=== PATIENT | male | born 1950 | race Caucasian/White ===

== ENCOUNTER 2016-08-26 13:19 | Emergency (ER) | payer BC ==
[2016-08-26 13:43] VITALS: TEMP 97.8
[2016-08-26] MEDS ORDERED: SODIUM CHLORIDE 0.9% (FLUSH) 10 ML SYG IV PRN (13:52)
[2016-08-26] MEDS ORDERED: METOCLOPRAMIDE HCL INJ 10 MG/2 ML VIAL IV ONE (13:53)
[2016-08-26] MEDS ORDERED: diphenhydrAMINE HCL 50 MG/ML VIAL IV ONE (13:54)
[2016-08-26] MEDS ORDERED: SODIUM CHLORIDE 0.9% 1000ML 1,000 ML IVS ONE (13:55)
--- NOTE | 2016-08-26 14:22 | ED.PDOC ---
History of Present Illness - General Chief Complaint: Neuro Symptoms/Deficits Stated Complaint: dizziness,nausea,right sided tingling Time Seen by Provider: 08/26/16 13:50 Source: patient, family Exam Limitations: no limitations - History of Present Illness Initial Comments: 66 YO MALE PRESENTS TO ED WITH HEADACHE X 2 DAYS ASSOCIATED WITH PHOTOPHOBIA, NAUSEA, DIZZINESS, AND RIGHT SIDED PARESTESIAS. PT REPORTS HISTORY OF MIGRAINE HEADACHES BUT STATES THAT TODAYS SYMPTOMS ARE MORE SEVERE, PERSISTENT, AND INVOLVING PARESTESIAS AND NAUSEA. Timing/Duration: other - 2 DAYS GETTING WORSE SINCE 9AM THIS MORNING Severity: severe Improving Factors: other - DARKNESS Worsening Factors: other - LIGHT Associated Symptoms: nausea/vomiting, paresthesia - RIGHT UPPER EXTREMITY, RIGHT SIDE OF FACE, sleepy Allergies/Adverse Reactions: Allergies Bee Venom Allergy (Severe, Verified 12/30/13 16:54) Other swelling of throat, itching, welps Penicillins Allergy (Severe, Verified 12/30/13 16:54) Other Swelling of his throat, itching Home Medications: Ambulatory Orders Acetaminophen [Tylenol] 500 mg PO Q4H PRN 12/30/13 Aspirin [Aspirin EC] 81 mg PO BEDTIME 12/30/13 Benazepril HCl 20 mg PO DAILY 12/30/13 Ibuprofen [Advil] 400 mg PO Q6H PRN 12/30/13 Misc Natural Products [Saw [place]] 2 cap PO BID 12/30/13 Paroxetine HCl 10 mg PO DAILY 12/30/13 Nitroglycerin 0.4 mg Tab [Nitrostat] 1 ea SL Q5MIN PRN #1 bttl 12/31/13 Omeprazole Magnesium [Prilosec Otc] 20 mg PO DAILYBK #30 tab 12/31/13 Naproxen [Naprosyn] 500 mg PO BID #30 tab 11/01/14 Ondansetron [Zofran Odt] 4 mg PO QID #20 tab 11/01/14 Tramadol HCl [Ultram] 50 mg PO QID #20 tab 11/01/14 Hgevxdcabuvey-Svnx-Vgtqzabhao [Fioricet] 1 - 2 ea PO Q6HR PRN #20 tab 08/26/16 Review of Systems - Review of Systems Constitutional: Denies: chills, fever EENTM: Denies: blurred vision, double vision Respiratory: Denies: cough, short of breath Cardiology: Denies: chest pain, palpitations Gastrointestinal/Abdominal: States: nausea. Denies: diarrhea, vomiting Genitourinary: Denies: dysuria, frequency Musculoskeletal: Denies: joint pain, joint swelling Skin: Denies: dryness, rash Neurological: States: see HPI, headache, paresthesia Endocrine: States: no symptoms reported Hematologic/Lymphatic: States: no symptoms reported Past Medical History (General) - Patient Medical History Hx Seizures: No Hx Stroke: Yes Hx Cardiac Disorders: Yes Hx Congestive Heart Failure: No Hx Pacemaker: No Hx Hypertension: Yes Hx Diabetes: No Hx Cancer: No Hx Hepatitis C: No Hx MRSA: No Surgical History: cholecystectomy, tonsillectomy - Vaccination History Hx Influenza Vaccination: Yes Hx Pneumococcal Vaccination: Yes - Social History Hx Tobacco Use: Yes Hx Alcohol Use: No Hx Substance Use: No Hx Physical Abuse: No Hx Emotional Abuse: No - Female History Patient : No Family Medical History - Family History Mother Living Status: Hx Family Stroke: Yes Hx Family Diabetes: Yes Hx Family Cancer: Yes Father Living Status: Hx Family Hypertension: Yes Hx Family Diabetes: Yes Physical Exam - Physical Exam General Appearance: Alert, Obvious distress, Obese ENT Exam: normal ENT inspection, hearing grossly normal Neck: supple, tender lateral Respiratory: lungs clear, normal breath sounds Cardiovascular/Chest: regular rate, rhythm, no murmur Gastrointestinal/Abdominal: non tender, soft Back Exam: normal inspection, no CVA tenderness 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 PT RATES PAIN AT 4/10. WILL ORDER FIORICET. 08/26/16 16:15 PT RESTING COMFORTABLY AND REPORTS COMPLETE RESOLLUTION OF HEADACHE AND PARESTESIAS AFTER FIORICET. WILL D/C HOME AND RECCOMEND FOLLOW UP WITH DR. HICKEY. - EKG/XRAY/CT EKG: Sinus - 91BPM, NL AXIS, INCOMPLETE RBBB, no ST T wave changes, Unchanged from 12/30/13 Stroke Information - Onset of Symptoms Symptoms of Stroke: Numbness Stroke Onset of Symptoms Date: 08/25/16 Stroke Onset of Symptoms Time: 07:00 - Contraindications Antithrombotic Contraindication: Treatment not indicated t-PA Contraindication: Drug Tx Not Indicated Departure - Departure Clinical Impression: Complicated migraine Time of Disposition: 16:16 Disposition: Discharge to Home or Self Care Condition: Good Departure Forms: ED Discharge - Pt. Copy, Patient Portal Self Enrollment Instructions: DI for Migraine Diet: resume usual diet Referrals: Leighton Sparks MD [Primary Care Provider] - 1-2 Weeks Prescriptions: Dvhrlxmluddsu-Bupp-Xeydctnpgm [Fioricet] 1 - 2 ea PO Q6HR PRN #20 tab PRN Reason: Headache/Migraine Pain Home Medications: Ambulatory Orders Acetaminophen [Tylenol] 500 mg PO Q4H PRN 12/30/13 Aspirin [Aspirin EC] 81 mg PO BEDTIME 12/30/13 Benazepril HCl 20 mg PO DAILY 12/30/13 Ibuprofen [Advil] 400 mg PO Q6H PRN 12/30/13 Misc Natural Products [Saw [place]] 2 cap PO BID 12/30/13 Paroxetine HCl 10 mg PO DAILY 12/30/13 Nitroglycerin 0.4 mg Tab [Nitrostat] 1 ea SL Q5MIN PRN #1 bttl 12/31/13 Omeprazole Magnesium [Prilosec Otc] 20 mg PO DAILYBK #30 tab 12/31/13 Naproxen [Naprosyn] 500 mg PO BID #30 tab 11/01/14 Ondansetron [Zofran Odt] 4 mg PO QID #20 tab 11/01/14 Tramadol HCl [Ultram] 50 mg PO QID #20 tab 11/01/14 Baertajumdzcx-Veoa-Hhfuonlsuv [Fioricet] 1 - 2 ea PO Q6HR PRN #20 tab 08/26/16
--- NOTE | 2016-08-26 14:23 | CT ---
EXAM DESCRIPTION: Head CLINICAL HISTORY: HEADACHE, PARESTESIAS COMPARISON: None TECHNIQUE: Noncontrast transaxial CT images of the head are obtained from base to vertex. CT scan was done according to ALARA (As Low as Reasonably Achievable). FINDINGS: The midline structures are not displaced. Sulci are age-appropriate. There are areas of decreased attenuation in the periventricular white matter and the white matter of the centrum semiovale. There is no evidence of mass, mass-effect, hydrocephalus, or acute intracranial hemorrhage. No abnormal extra axial fluid collection is seen. Bone windows show no evidence of depressed skull fracture. Incidentally noted the presence of the bony covering of the right carotid artery in the superior aspect of the right sphenoid sinus. Mild mucosal thickening of ethmoid air cells is noted. IMPRESSION: 1. Age-appropriate atrophy with evidence of old small vessel ischemic type changes seen. 2. No acute abnormality is seen on noncontrast CT of the head. 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
[2016-08-26] MEDS ORDERED: KETOROLAC TROMETHAMINE INJ 30 MG/ML VIAL IV ONE (14:28)
[2016-08-26] MEDS ORDERED: ACETAMINOPHEN-CAFF-BUTALBITAL 1 EA TAB PO PRN (15:17)
[2016-08-26 16:11] VITALS: O2SAT 95
[2016-08-26 16:38] VITALS: BP 108/56
== END 2016-08-26 16:38 | disposition home or self-care (01) ==
LOC: ER 13:19
DX: G43.109 Migraine with aura, not intractable, without status migrainosus (principal); I10 Essential (primary) hypertension; Z79.82 Long term (current) use of aspirin; Z79.899 Other long term (current) drug therapy; Z86.73 Personal history of transient ischemic attack (TIA), and cerebral infarction without residual deficits; Z88.0 Allergy status to penicillin; Z91.030 Bee allergy status; Z87.891 Personal history of nicotine dependence
CPT/HCPCS: 36415; 70450; 80053; 82550; 82553; 84484; 85025; 85610; 85730; 93005; J1200; J1885; J2765; J7030

== ENCOUNTER → 2017-04-04 | Outpatient (CLI) | payer BC ==
--- NOTE | 2017-04-04 15:10 | MRI ---
Study: MRI of the Left Knee. Indication: Anterior knee pain. Technique: Multiplanar, multi sequence MRI of the left knee was obtained without intravenous contrast. Comparison: None. FINDINGS: ACL, PCL, and lateral collateral ligament complex intact. Grade 1 MCL sprain with bowing and surrounding edema. Near complete radial transection posterior root attachment medial meniscus with degenerative signal throughout the posterior horn and body. Body extruded by 2 mm. Discoid configuration lateral meniscus with horizontally oriented degenerative signal posterior horn and body but without well-defined tear. Areas of grade 2 chondral thinning of the medial and lateral knee compartments without full-thickness chondral defect. A transversely oriented stress fracture of the medial tibial plateau noted paralleling the articular cortex but without cortical disruption. Associated moderate size knee effusion. Tendinosis quadriceps tendon insertion and patellar tendon origin without tear. Patella normally located. Extensive grade 2-3 chondral fibrillation throughout the junction lateral patellar facet and apex with less pronounced changes of the medial facet. Tiny Mathews cyst. IMPRESSION: Near-complete renal transection posterior root attachment medial meniscus. Discoid configuration lateral meniscus with degenerative signal. Transverse fracture medial tibial plateau without cortical/articular disruption. Grade 1 MCL sprain. Tricompartmental chondrosis most pronounced at the patella as above. Moderate size knee effusion. Electronically signed by: Angel Graves MD 04/04/2017 3:08 PM CDT
== END | disposition home or self-care (01) ==
LOC: MRI 09:58
PROVIDERS: ATTEND Family Medicine
DX: M25.562 Pain in left knee (principal); M84.38XA Stress fracture, other site, initial encounter for fracture; X58.XXXA Exposure to other specified factors, initial encounter

== ENCOUNTER → 2017-04-15 | Outpatient (CLI) | payer BC ==
--- NOTE | 2017-04-17 01:20 | RAD ---
Examination: XR KNEE 4 OR MORE VIEWS dated 04/15/2017 12:00 AM CDT History: KNEE PAIN Comparison: None Technique: Four views of the left knee FINDINGS AND IMPRESSION: No acute fracture or dislocation. The joint space is well-maintained. No significant joint effusion. Electronically signed by: Bharat Bacon MD 04/17/2017 1:18 AM CDT
== END | disposition home or self-care (01) ==
LOC: RAD 08:06
PROVIDERS: ATTEND Orthopaedic Surgery
DX: M25.562 Pain in left knee (principal)

== ENCOUNTER → 2017-05-06 | Outpatient (CLI) | payer BC ==
--- NOTE | 2017-05-08 10:23 | RAD ---
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 No joint effusion seen. No subcutaneous gas or radiopaque foreign body. No lytic or sclerotic lesions identified. No significant degenerative change. Impression: Stable and nonacute left knee series. Electronically signed by: Aldair Galicia MD 05/08/2017 10:21 AM PROFESSOR OF OCEANOGRAPHY
== END | disposition home or self-care (01) ==
LOC: RAD 07:57
PROVIDERS: ATTEND Orthopaedic Surgery
DX: S82.102D Unspecified fracture of upper end of left tibia, subsequent encounter for closed fracture with routine healing (principal)

== ENCOUNTER → 2017-07-05 | Outpatient (CLI) | payer BC | END | disposition home or self-care (01) | LOC: GMAH 10:21 | PROVIDERS: ATTEND Family Medicine | DX: E78.2 Mixed hyperlipidemia (principal); Z12.5 Encounter for screening for malignant neoplasm of prostate ==

== ENCOUNTER → 2017-08-18 | Outpatient (CLI) | payer BC | LOC: GMAH 17:00 | PROVIDERS: ATTEND Family Medicine | DX: N39.0 Urinary tract infection, site not specified (principal); R39.11 Hesitancy of micturition ==

== ENCOUNTER 2017-11-02 14:54 | Emergency (ER) | payer BC ==
--- NOTE | 2017-11-02 15:02 | ED.PDOC ---
History of Present Illness - General Chief Complaint: General Stated Complaint: cough Time Seen by Provider: 11/02/17 15:00 Source: patient Exam Limitations: no limitations - History of Present Illness Initial Comments: susan Ann 67 y/o male stated that he had slightly productive cough for the last 3 days then yesterday feels febrile also had exacerbation of his migraine headaches.He also mentioned that for the last 2 weeks had burning sensation on his right leg but no weakness,no history of injury,no swelling.Had the following medical problems:HTN,Migraine,CVA,[id number]. Timing/Duration: other - see hpi Severity: moderate Improving Factors: nothing Worsening Factors: nothing Associated Symptoms: other - see hpi Allergies/Adverse Reactions: Allergies Bee Venom Allergy (Severe, Verified 11/02/17 15:07) Other swelling of throat, itching, welps Penicillins Allergy (Severe, Verified 11/02/17 15:07) Other Swelling of his throat, itching Home Medications: Ambulatory Orders Acetaminophen [Tylenol] 500 mg PO Q4H PRN 12/30/13 Aspirin [Aspirin EC] 81 mg PO BEDTIME 12/30/13 Benazepril HCl 20 mg PO DAILY 12/30/13 Ibuprofen [Advil] 400 mg PO Q6H PRN 12/30/13 Misc Natural Products [Saw [place]] 2 cap PO BID 12/30/13 Paroxetine HCl 10 mg PO DAILY 12/30/13 Nitroglycerin 0.4 mg Tab [Nitrostat] 1 ea SL Q5MIN PRN #1 bttl 12/31/13 Omeprazole Magnesium [Prilosec Otc] 20 mg PO DAILYBK #30 tab 12/31/13 Naproxen [Naprosyn] 500 mg PO BID #30 tab 11/01/14 Ondansetron [Zofran Odt] 4 mg PO QID #20 tab 11/01/14 Tramadol HCl [Ultram] 50 mg PO QID #20 tab 11/01/14 Frndvazyryvcm-Qwqa-Imwtmmxuzi [Fioricet] 1 - 2 ea PO Q6HR PRN #20 tab 08/26/16 Review of Systems - Review of Systems Constitutional: States: no symptoms reported EENTM: States: no symptoms reported Respiratory: States: see HPI, cough Cardiology: States: no symptoms reported Gastrointestinal/Abdominal: States: no symptoms reported Genitourinary: States: no symptoms reported Musculoskeletal: States: see HPI Skin: States: no symptoms reported Neurological: States: see HPI, paresthesia Endocrine: States: no symptoms reported Hematologic/Lymphatic: States: no symptoms reported All other Systems: Reviewed and Negative, No Change from Baseline Past Medical History (General) - Patient Medical History Hx Seizures: No Hx Stroke: Yes Hx Cardiac Disorders: Yes Hx Congestive Heart Failure: No Hx Pacemaker: No Hx Hypertension: Yes Hx Diabetes: No Hx Cancer: No Hx Hepatitis C: No Hx MRSA: No Surgical History: cholecystectomy, tonsillectomy, other - 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 - Vaccination History Hx Influenza Vaccination: Yes Hx Pneumococcal Vaccination: Yes - Social History Hx Tobacco Use: Yes Hx Alcohol Use: No Hx Substance Use: No Hx Physical Abuse: No Hx Emotional Abuse: No - Female History Patient : No Family Medical History - Family History Mother Living Status: Hx Family Stroke: Yes Hx Family Diabetes: Yes Hx Family Cancer: Yes Father Living Status: Hx Family Hypertension: Yes Hx Family Diabetes: Yes Physical Exam - Physical Exam General Appearance: Alert, Comfortable, No apparent distress Eye Exam: bilateral normal Ears, Nose, Throat: hearing grossly normal, normal ENT inspection, normal pharynx Neck: non-tender, full range of motion, supple, normal inspection Respiratory: chest non-tender, lungs clear, normal breath sounds, no respiratory distress Cardiovascular/Chest: normal peripheral pulses, regular rate, rhythm, no gallop , no murmur Peripheral Pulses: radial,right: 2+, radial,left: 2+ Gastrointestinal/Abdominal: normal bowel sounds, non tender, soft, no organomegaly Back Exam: normal inspection, no CVA tenderness, no vertebral tenderness, other - rom full right knee no instability Extremity: no pedal edema, no calf tenderness 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 II-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 nml as tested, no motor/sensory deficits, alert, oriented x 3 Skin Exam: normal color Lymphatic: no adenopathy Progress - Progress Progress: 11/02/17 15:53 Vital Signs - 8 hr 11/02/17 15:00 Temperature 98.3 F Pulse Rate [ 95 H pulse ox] Respiratory 20 Rate Blood Pressure 164/90 [Left Arm] O2 Sat by Pulse 97 Oximetry - Results/Orders Results/Orders: 11/02/17 15:17 IV Care:Saline Lock per Protoc QSHIFT Laboratory Results - last 24 hr 11/02/17 11/02/17 11/02/17 15:17 15:17 15:17 WBC 7.1 RBC 4.47 L Hgb 13.6 L Hct 40.5 L MCV 90.7 MCH 30.4 MCHC 33.6 RDW 14.4 Plt Count 217 MPV 7.3 L Absolute Neuts (auto) 4.60 Absolute Lymphs (auto) 1.70 Absolute Monos (auto) 0.70 Absolute Eos (auto) 0.10 Absolute Basos (auto) 0.00 Neutrophils % 64.3 Lymphocytes % 23.5 Monocytes % 10.5 H Eosinophils % 1.0 Basophils % 0.7 ESR 6 PT 10.9 INR 0.940 PTT (SP) 29.8 D-Dimer, Quantitative < 230 Sodium 138 Potassium 4.4 Chloride 106 Carbon Dioxide 26 Anion Gap 10.4 L BUN 26 H Creatinine 1.21 BUN/Creatinine Ratio 21.5 H Random Glucose 95 Serum Osmolality 280.2 Lactic Acid Uric Acid 6.5 Calcium 9.0 Magnesium 1.9 Total Bilirubin 0.4 Direct Bilirubin 0.1 Indirect Bilirubin 0.3 AST 19 ALT 13 Alkaline Phosphatase 51 Creatine Kinase 107 CK-MB (CK-2) 2.5 CK-MB (CK-2) % Not Reportable Troponin I < 0.02 Serum Total Protein 7.0 Albumin 3.8 Urine Color Urine Appearance Urine pH Ur Specific Sophia Urine Protein Urine Glucose (UA) Urine Ketones Urine Blood Urine Nitrite Urine Bilirubin Urine Urobilinogen Ur Leukocyte Esterase Urine RBC Urine WBC Ur Epithelial Cells Amorphous Sediment Urine Bacteria 11/02/17 11/02/17 15:17 16:15 WBC RBC Hgb Hct MCV MCH MCHC RDW Plt Count MPV Absolute Neuts (auto) Absolute Lymphs (auto) Absolute Monos (auto) Absolute Eos (auto) Absolute Basos (auto) Neutrophils % Lymphocytes % Monocytes % Eosinophils % Basophils % ESR PT INR PTT (SP) D-Dimer, Quantitative Sodium Potassium Chloride Carbon Dioxide Anion Gap BUN Creatinine BUN/Creatinine Ratio Random Glucose Serum Osmolality Lactic Acid 0.8 Uric Acid Calcium Magnesium Total Bilirubin Direct Bilirubin Indirect Bilirubin AST ALT Alkaline Phosphatase Creatine Kinase CK-MB (CK-2) CK-MB (CK-2) % Troponin I Serum Total Protein Albumin Urine Color Yellow Urine Appearance Clear Urine pH 5.5 Ur Specific Sophia 1.025 Urine Protein Trace Urine Glucose (UA) Negative Urine Ketones Negative Urine Blood Trace-lysed H Urine Nitrite Negative Urine Bilirubin Negative Urine Urobilinogen 0.2 Ur Leukocyte Esterase Negative Urine RBC 1-3 Urine WBC 0-1 Ur Epithelial Cells 3-5 Amorphous Sediment 3+ Urine Bacteria Rare - EKG/XRAY/CT XRAY: knee - mild degenerative changes right knee Departure - Departure Clinical Impression: Cough, Paresthesia of right leg Time of Disposition: 17:00 Disposition: Discharge to Home or Self Care Departure Forms: ED Discharge - Pt. Copy, Patient Portal Self Enrollment Referrals: Leighton Sparks MD [Primary Care Provider] - 1-2 Weeks Home Medications: Ambulatory Orders Acetaminophen [Tylenol] 500 mg PO Q4H PRN 12/30/13 Aspirin [Aspirin EC] 81 mg PO BEDTIME 12/30/13 Benazepril HCl 20 mg PO DAILY 12/30/13 Ibuprofen [Advil] 400 mg PO Q6H PRN 12/30/13 Misc Natural Products [Saw [place]] 2 cap PO BID 12/30/13 Paroxetine HCl 10 mg PO DAILY 12/30/13 Nitroglycerin 0.4 mg Tab [Nitrostat] 1 ea SL Q5MIN PRN #1 bttl 12/31/13 Omeprazole Magnesium [Prilosec Otc] 20 mg PO DAILYBK #30 tab 12/31/13 Naproxen [Naprosyn] 500 mg PO BID #30 tab 11/01/14 Ondansetron [Zofran Odt] 4 mg PO QID #20 tab 11/01/14 Tramadol HCl [Ultram] 50 mg PO QID #20 tab 11/01/14 Hawzvbqtoqnew-Vspv-Truwkumrsz [Fioricet] 1 - 2 ea PO Q6HR PRN #20 tab 08/26/16 Additional Instructions: Follow up with primary MD 03 Nov 2017;Return to ER as needed
[2017-11-02 15:08] VITALS: TEMP 98.3
--- NOTE | 2017-11-02 15:46 | RAD ---
EXAM DESCRIPTION: Chest,2 Views CLINICAL HISTORY: cough COMPARISON: November 01, 2014 TECHNIQUE: PA/lateral FINDINGS: The lungs are well expanded and clear. No infiltrates or effusions or masses are noted. The heart is normal in size and shape with no evidence of vascular congestion. The meme and mediastinum demonstrate normal contours. The bony spine and chest wall is normal for age in appearance. IMPRESSION: Normal chest, two views Electronically signed by: Kyle Avina MD 11/02/2017 3:44 PM CDT
--- NOTE | 2017-11-02 15:48 | RAD ---
EXAM DESCRIPTION: Knee,Right 2 or More Views CLINICAL HISTORY: 67 years, Male, cough COMPARISON: May 06, 2017 examination of the left knee TECHNIQUE: Two views right knee FINDINGS: Two views demonstrate normal alignment. Slight fragmentation of the tibial tuberosity likely represents old inflammatory or traumatic disease. Blunting of the infrapatellar fat pad to confirm Quentin-Schlatter's disease is not apparent. No definite joint effusion is seen. No acute injury noted. IMPRESSION: 1. Minimal degenerative changes otherwise negative right knee. Electronically signed by: Kyle Avina MD 11/02/2017 3:46 PM CDT
--- NOTE | 2017-11-02 16:07 | RAD ---
EXAM DESCRIPTION: Tibia/Fibula,Right CLINICAL HISTORY: 67 years Male, pain COMPARISON: None. FINDINGS: AP lateral right tib-fib shows no fracture or bone lesion. No soft tissue abnormality detected. IMPRESSION: Negative Electronically signed by: Feroz Arce MD 11/02/2017 4:06 PM CDT
[2017-11-02 17:08] VITALS: BP 150/88; O2SAT 96
== END 2017-11-02 17:09 | disposition home or self-care (01) ==
LOC: ER 14:54
DX: R05 Cough (principal); R20.2 Paresthesia of skin; I10 Essential (primary) hypertension; Z86.73 Personal history of transient ischemic attack (TIA), and cerebral infarction without residual deficits; Z79.82 Long term (current) use of aspirin; Z87.891 Personal history of nicotine dependence

== ENCOUNTER → 2017-11-03 | Outpatient (CLI) | payer BC, MEDICARE ==
--- NOTE | 2017-11-03 16:50 | US ---
EXAM DESCRIPTION: Venous,Lower Extremity RT CLINICAL HISTORY: 67 years Male PN IN RIGHT LEG COMPARISON: None. TECHNIQUE: Duplex imaging performed to evaluate the right lower extremity venous structures. Compression imaging and augmentation imaging performed. The common femoral, superficial femoral, popliteal, greater saphenous and posterior tibial veins were examined. FINDINGS: No thrombus is identified in the right lower extremity venous structures. IMPRESSION: No DVT is identified in the right lower extremity. Electronically signed by: Soco Lewis MD 11/03/2017 4:49 PM CDT
== END ==
LOC: RAD 15:54
PROVIDERS: ATTEND Family Medicine
DX: M79.661 Pain in right lower leg (principal)

== ENCOUNTER 2017-11-20 10:56 | Emergency (ER) | payer BC, OTHER ==
--- NOTE | 2017-11-20 11:21 | ED.PDOC ---
History of Present Illness - General Chief Complaint: Lower Extremity Injury Time Seen by Provider: 11/20/17 11:12 Source: patient Exam Limitations: no limitations - History of Present Illness Occurred: yesterday Pain - Lower Extremity: severe: Right Knee Method of Injury: other - sudden sharp pain in knee while ascending a ladder Improving Factors: immobilization Worsening Factors: movement - and weight bearing Allergies/Adverse Reactions: Allergies Bee Venom Allergy (Severe, Verified 11/02/17 15:07) Other swelling of throat, itching, welps Penicillins Allergy (Severe, Verified 11/02/17 15:07) Other Swelling of his throat, itching Home Medications: Ambulatory Orders Acetaminophen [Tylenol] 500 mg PO Q4H PRN 12/30/13 Aspirin [Aspirin EC] 81 mg PO BEDTIME 12/30/13 Benazepril HCl 20 mg PO DAILY 12/30/13 Ibuprofen [Advil] 400 mg PO Q6H PRN 12/30/13 Misc Natural Products [Saw [place]] 2 cap PO BID 12/30/13 Paroxetine HCl 10 mg PO DAILY 12/30/13 Nitroglycerin 0.4 mg Tab [Nitrostat] 1 ea SL Q5MIN PRN #1 bttl 12/31/13 Omeprazole Magnesium [Prilosec Otc] 20 mg PO DAILYBK #30 tab 12/31/13 Naproxen [Naprosyn] 500 mg PO BID #30 tab 11/01/14 Ondansetron [Zofran Odt] 4 mg PO QID #20 tab 11/01/14 Tramadol HCl [Ultram] 50 mg PO QID #20 tab 11/01/14 Xnrurslufqrpf-Ryaf-Ygzdncyckm [Fioricet] 1 - 2 ea PO Q6HR PRN #20 tab 08/26/16 Tramadol HCl 50 mg PO Q4HWA PRN #20 tab 11/20/17 Review of Systems - Review of Systems Constitutional: States: no symptoms reported EENTM: States: no symptoms reported Gastrointestinal/Abdominal: States: no symptoms reported Musculoskeletal: States: joint pain Skin: States: no symptoms reported Neurological: States: no symptoms reported Past Medical History (General) - Patient Medical History Hx Seizures: No Hx Stroke: Yes Hx Cardiac Disorders: Yes Hx Congestive Heart Failure: No Hx Pacemaker: No Hx Hypertension: Yes Hx Diabetes: No Hx Cancer: No Hx Hepatitis C: No Hx MRSA: No - Vaccination History Hx Influenza Vaccination: Yes Hx Pneumococcal Vaccination: Yes - Social History Hx Tobacco Use: Yes Hx Alcohol Use: No Hx Substance Use: No Hx Physical Abuse: No Hx Emotional Abuse: No - Female History Patient : No Family Medical History - Family History Mother Living Status: Hx Family Stroke: Yes Hx Family Diabetes: Yes Hx Family Cancer: Yes Father Living Status: Hx Family Hypertension: Yes Hx Family Diabetes: Yes Physical Exam - Physical Exam General Appearance: Alert, Anxious Thigh/Hip: normal inspection, non-tender Leg: normal inspection, non-tender Knee: normal inspection, limited ROM, other - tender over lateral joint line and popliteal fossa, positive Momo's sign Ankle: normal inspection, non-tender Foot: normal inspection, non-tender Neuro/Tendon: normal sensation Mental Status: alert, oriented x 3 Skin: normal color, warm/dry Departure - Departure Clinical Impression: Meniscal injury Qualifiers: Encounter type: initial encounter Laterality: right Qualified Code(s): S83.8X1A - Sprain of other specified parts of right knee, initial encounter Disposition: Discharge to Home or Self Care Condition: Fair Departure Forms: ED Discharge - Pt. Copy, Patient Portal Self Enrollment Instructions: DI for Leg Pain Activity: walking as tolerated Referrals: Leighton Sparks MD [Primary Care Provider] - 1-2 Weeks Prescriptions: Tramadol HCl 50 mg PO Q4HWA PRN #20 tab PRN Reason: Moderate To Severe Pain Home Medications: Ambulatory Orders Acetaminophen [Tylenol] 500 mg PO Q4H PRN 12/30/13 Aspirin [Aspirin EC] 81 mg PO BEDTIME 12/30/13 Benazepril HCl 20 mg PO DAILY 12/30/13 Ibuprofen [Advil] 400 mg PO Q6H PRN 12/30/13 Misc Natural Products [Saw [place]] 2 cap PO BID 12/30/13 Paroxetine HCl 10 mg PO DAILY 12/30/13 Nitroglycerin 0.4 mg Tab [Nitrostat] 1 ea SL Q5MIN PRN #1 bttl 12/31/13 Omeprazole Magnesium [Prilosec Otc] 20 mg PO DAILYBK #30 tab 12/31/13 Naproxen [Naprosyn] 500 mg PO BID #30 tab 11/01/14 Ondansetron [Zofran Odt] 4 mg PO QID #20 tab 11/01/14 Tramadol HCl [Ultram] 50 mg PO QID #20 tab 11/01/14 Hvrwqrbdotkdy-Bvvd-Ifkwiwmylc [Fioricet] 1 - 2 ea PO Q6HR PRN #20 tab 08/26/16 Tramadol HCl 50 mg PO Q4HWA PRN #20 tab 11/20/17
[2017-11-20 11:33] VITALS: TEMP 98
--- NOTE | 2017-11-20 12:22 | RAD ---
EXAM DESCRIPTION: Knee,Right 2 or More Views CLINICAL HISTORY: pain in popliteal fossa COMPARISON: None FINDINGS: AP, lateral and sunrise views of the right knee were submitted. There is no acute fracture or dislocation. Bone mineralization is within normal limits. There is no suprapatellar joint fluid collection IMPRESSION: No acute abnormalities Electronically signed by: Jaycob Ruiz MD 11/20/2017 12:21 PM CDT
[2017-11-20] MEDS ORDERED: traMADol HCL 50 MG TAB PO ONE (12:44)
[2017-11-20 15:28] VITALS: BP 142/84; O2SAT 97
== END 2017-11-20 13:12 | disposition home or self-care (01) ==
LOC: ER 10:56
DX: S83.8X1A Sprain of other specified parts of right knee, initial encounter (principal); I10 Essential (primary) hypertension; Z86.73 Personal history of transient ischemic attack (TIA), and cerebral infarction without residual deficits; Z87.891 Personal history of nicotine dependence; Z79.82 Long term (current) use of aspirin; Z79.899 Other long term (current) drug therapy; X58.XXXA Exposure to other specified factors, initial encounter

== ENCOUNTER → 2018-02-27 | Outpatient (CLI) | payer BC | LOC: LAB.O 10:29 | PROVIDERS: ATTEND Orthopaedic Surgery | DX: Z01.818 Encounter for other preprocedural examination (principal) ==

== ENCOUNTER 2018-03-31 05:41 | Inpatient (IN) | payer BC, MEDICARE ==
--- NOTE | 2018-03-20 11:13 | HP ---
CHIEF COMPLAINT: Right knee pain. HISTORY OF PRESENT ILLNESS: Mr. Ann is a 67-year-old male with a history of pain in both knees. Mr. Ann has had injections, however, has failed to gain relief. Because of his pain and failure of relief, he has requested operative intervention. After discussing the risks, benefits and alternatives to that, the patient has given informed consent for total knee arthroplasty. PAST SURGICAL HISTORY: 1. Cholecystectomy. 2. Skin cancer removal. MEDICATIONS: 1. Benazepril. 2. Fluoxetine. 3. Tamsulosin. 4. Tramadol. ALLERGIES: NO KNOWN DRUG ALLERGIES. CODE STATUS: Full code. IMMUNIZATIONS: Up to date. FAMILY HISTORY: None pertinent to today's complaint. SOCIAL HISTORY: The patient does not smoke or use any illicit drugs. He does drink on occasion. REVIEW OF SYSTEMS: Negative except as indicated in the History of Present Illness. PHYSICAL EXAMINATION: VITAL SIGNS: Blood pressure 148/91. Pulse 86. Height 5'10". Weight 264 pounds. MENTAL STATUS: The patient is awake, alert, and is able to give a good history and participate in the physical. The patient is oriented to person, place and time. SKIN: Normal tone and turgor. HEENT: Normocephalic, atraumatic. Pupils equal, round and reactive. Mucosal membranes are moist. NECK: Normal range of motion. No thyromegaly, no lymphadenopathy. CHEST: Normal respiratory excursion. CARDIAC: Regular rate and rhythm. No murmurs, rubs or gallops. MUSCULOSKELETAL: The bilateral upper extremities show full active range of motion without pain. He has intact sensation. They are warm and well perfused. Strength is 5/5. There is no deformity. There is no crepitus. The left lower extremity shows no pain with range of motion of the hip. He does have some pain with range of motion in the knee. He has intact sensation. There is no varus/valgus or anterior/posterior laxity. He has no obvious malalignment. The right lower extremity shows no pain with range of motion of the hip, but he has severe pain with range of motion in the knee. He has crepitus throughout his range of motion. Sensation is intact and it is warm and well perfused. There is no varus/valgus or anterior/posterior laxity. He does have slight varus deformity. IMAGING: X-rays show severe arthritis with varus deformity. ASSESSMENT: 1. Knee arthritis. PLAN: The plan at this point is for total knee arthroplasty. We have discussed the risks, benefits, and alternatives to that and the patient has given informed consent. #[id number] [facility]
[2018-03-31] MEDS ORDERED: VANCOMYCIN HCL INJ 1,000 MG VIAL IVPB ONE ×4 (06:09→19:30)
[2018-03-31] MEDS ORDERED: SODIUM CHLORIDE 0.9% 250ML 250 ML ONE ×3 (06:09→19:30)
[2018-03-31] MEDS ORDERED: LACTATED RINGERS 1,000 ML ONE (06:09)
[2018-03-31] MEDS ORDERED: CLINDAMYCIN IV 900MG 50 ML IVPB ONE ×2 (06:09→06:58)
[2018-03-31] MEDS ORDERED: TRANEXAMIC ACID 1,000 MG/10 ML VIAL ONE ×2 (06:10)
[2018-03-31] MEDS ORDERED: SODIUM CHLORIDE 0.9% 100ML 100 ML IVPB ONE (06:10)
[2018-03-31] MEDS ORDERED: fentaNYL CITRATE INJ 50 MCG/ML AMP ONE (06:25)
[2018-03-31] MEDS ORDERED: ACETAMINOPHEN IV 1000MG 100 ML ONE (06:25)
[2018-03-31] MEDS ORDERED: MORPHINE SULF *EPIDURAL* 1 MG/ML VIAL ONE (06:25)
[2018-03-31] MEDS ORDERED: MIDAZOLAM INJ 2 MG/2 ML VIAL ONE (06:25)
[2018-03-31] MEDS ORDERED: ceFAZolin SODIUM 1 GM VIAL ONE ×3 (06:27→07:00)
[2018-03-31] MEDS ORDERED: LIDOCAINE 1% 10 ML VIAL INJ ONE (07:00)
[2018-03-31] MEDS ORDERED: raNITIdine HCL INJ 25 MG/ML VIAL ONE (07:00)
[2018-03-31] MEDS ORDERED: ePHEDrine SULF 50 MG/ML ONE (07:00)
[2018-03-31] MEDS ORDERED: DEXAMETHASONE INJ 10 MG/ML VIAL ONE (07:00)
[2018-03-31] MEDS ORDERED: METOCLOPRAMIDE HCL INJ 10 MG/2 ML VIAL ONE (07:00)
[2018-03-31] MEDS ORDERED: diphenhydrAMINE HCL 50 MG/ML VIAL ONE (07:00)
[2018-03-31] MEDS ORDERED: PROPOFOL 200 MG/20 ML VIAL IV ONE (07:00)
[2018-03-31] MEDS ORDERED: SODIUM CHLORIDE 0.9% (FLUSH) 10 ML SYG IV PRN (07:25)
[2018-03-31] MEDS ORDERED: TRANEXAMIC ACID INJ 1,000 MG in SODIUM CHLORIDE 0.9% 100ML 100 ML IVPB ONE (07:25)
[2018-03-31] MEDS ORDERED: ALUMINUM & MAGNESIUM HYDROXIDE 30 ML UD PO PRN (07:25)
[2018-03-31] MEDS ORDERED: TEMAZEPAM 15 MG CAP PO PRN (07:25)
[2018-03-31] MEDS ORDERED: DEX 5% W/NACL 0.45% 1000ML 1,000 ML IVS PRN (07:25)
[2018-03-31] MEDS ORDERED: MAGNESIUM HYDROXIDE 30 ML UD PO PRN (07:25)
[2018-03-31] MEDS ORDERED: BENZOCAINE-MENTH LOZ (CEPACOL) 1 EA LOZ MT PRN (07:25)
[2018-03-31] MEDS ORDERED: ACETAMINOPHEN 325 MG TAB PO PRN (07:25)
[2018-03-31] MEDS ORDERED: BISACODYL SUPPOSITORY 10 MG PR PRN (07:25)
[2018-03-31] MEDS ORDERED: MORPHINE SULFATE INJ 10 MG/ML VIAL IM PRN (07:25)
[2018-03-31] MEDS ORDERED: PROMETHAZINE HCL INJ 12.5 MG in SODIUM CHLORIDE 0.9% 50ML 50 ML IVPB PRN (07:25)
[2018-03-31] MEDS ORDERED: ACETAMINOPHEN 500 MG TAB PO PRN (07:25)
[2018-03-31] MEDS ORDERED: MORPHINE SULFATE INJ 10 MG/ML VIAL IV PRN (07:25)
[2018-03-31] MEDS ORDERED: NALOXONE HCL INJ 0.4 MG/ML VIAL IV PRN (07:25)
[2018-03-31] MEDS ORDERED: ZOLPIDEM TARTRATE 5 MG TAB PO PRN (07:25)
[2018-03-31] MEDS ORDERED: PROMETHAZINE HCL INJ 25 MG in SODIUM CHLORIDE 0.9% 50ML 50 ML IVPB PRN (07:25)
[2018-03-31] MEDS ORDERED: MORPHINE PCA 1 MG/ML 100 ML BAG IVPB SCH (07:30)
[2018-03-31] MEDS: BUPIVACAINE 0.5% 30 ML VIAL INJ ONE ×2 (08:01→09:49)
[2018-03-31] MEDS: VANCOMYCIN HCL INJ 1,000 MG VIAL IVPB ONE ×2 (08:01→09:41)
[2018-03-31] MEDS: BUPIVACAINE LIPOSOME 13.3 MG/ML VIAL INJ ONE ×2 (08:01→09:49)
[2018-03-31] MEDS ORDERED: ELECTROLYTE-A 1,000 ML IVS ONE (08:20)
[2018-03-31] MEDS: ceFAZolin SODIUM 1 GM VIAL ONE ×2 (09:37→09:41)
[2018-03-31] MEDS ORDERED: BUPIVACAINE LIPOSOME 13.3 MG/ML VIAL INJ ONE (09:54)
[2018-03-31] MEDS ORDERED: HYDROmorphone HCL INJ 2 MG/ML VIAL ONE (11:26)
[2018-03-31] MEDS: ONDANSETRON INJ 4 MG/2 ML VIAL IV PRN (11:30)
--- NOTE | 2018-03-31 12:03 | RAD ---
EXAM DESCRIPTION: Pelvis CLINICAL HISTORY: Post op COMPARISON: CT the abdomen pelvis dated July 2015 TECHNIQUE: AP pelvis FINDINGS: The bony pelvis is intact. The catheter is overlying the region of the bladder. Exam reveals a bone island in the left proximal femur. No fracturing is detected. IMPRESSION: A urinary region catheters observed in place. Exam is otherwise unremarkable. Electronically signed by: Eric Galarza MD 03/31/2018 12:01 PM CDT
[2018-03-31] MEDS: CELECOXIB 100 MG CAP PO SCH ×2 (13:22→18:37)
[2018-03-31] MEDS: IV SET AND CAP CHANGE INJ INJ SCH (13:23)
[2018-03-31] MEDS: MAGNESIUM OXIDE 400 MG TAB PO SCH (13:23)
--- NOTE | 2018-03-31 14:20 | RAD ---
EXAM DESCRIPTION: Knee,Right 2 or More Views CLINICAL HISTORY: 67 years Male, TKA COMPARISON: None. FINDINGS: Two views of the right knee show postoperative changes related to recent right knee arthroplasty. No hardware of the surgical complication is seen. As a bone fragment adjacent to the anterior tibial tuberosity which does not appear acute and is likely related to remote trauma or chronic/remote patellar tendinopathy. Gas and fluid in the right knee joint is consistent with recent arthroplasty. IMPRESSION: Postoperative changes related to right knee arthroplasty without apparent surgical complication. Electronically signed by: Flaco Campbell MD 03/31/2018 2:19 PM CDT
--- NOTE | 2018-03-31 16:50 | CONS ---
DATE OF CONSULTATION: 03/31/18 SUPERVISING PHYSICIAN: Dae Cortez M.D. CHIEF COMPLAINT: Right knee pain. HISTORY OF PRESENT ILLNESS: This is a 67 year-old male patient who I am seeing postoperatively today after right total knee arthroplasty performed by Dr. Haider Acosta, orthopedic surgeon. Prior to surgical intervention he tried conservative measures but due to his increasing and continued pain he elected to have a right total knee arthroplasty. He requested Dr. Haider Acosta, orthopedic surgeon, for operative intervention. Today, I am seeing him postoperatively. He had no intraoperative complications. PAST MEDICAL HISTORY: 1. Hypertension. 2. Cerebrovascular accident in 2006. 3. Benign prostatic hypertrophy. 4. Depression. 5. Hyperlipidemia. PAST SURGICAL HISTORY: 1. Cholecystectomy. 2. Tonsillectomy. 3. Ganglion cyst removal on his left cheek. OUTPATIENT MEDICATIONS: 1. Aspirin. 2. Omeprazole. 3. Benazepril. 4. Paroxetine. ALLERGIES: IODINE AND PENICILLIN. SOCIAL HISTORY: He is . He lives in [place]. He quit smoking in 1979. He drinks alcoholic beverages on a very rare occasion. There is no history of illicit drug use. REVIEW OF SYSTEMS: Negative except as per History of Present Illness. PHYSICAL EXAMINATION: VITAL SIGNS: He is afebrile, heart rate 76, blood pressure 106/64, respiratory rate 16, O2 sat 97% on 2 liters nasal cannula. GENERAL: This is a 67 year-old male patient who is lying in his hospital bed. He is in no acute distress. HEENT: Normocephalic and atraumatic. Pupils are equal and reactive. Oropharynx is clear. NECK: Supple without mass. RESPIRATORY: Essentially clear to auscultation bilaterally. CHEST: There is equal rise and fall of the chest with inspiration and expiration. HEART: Regular rate and rhythm. GASTROINTESTINAL: Abdomen is soft, nondistended, non-tender. Bowel sounds are positive. EXTREMITIES: His right leg is in the CPM machine. It has an Iceman in place. Bilateral pedal pulses are palpable at +2. NEUROLOGIC: He is awake, alert and oriented times three. LABORATORY: There are no labs or films to report at this time. IMPRESSION: 1. Osteoarthritis of the right knee. Postoperative day #0 right total knee arthroplasty performed by Dr. Haider Acosta, orthopedic surgeon. 2. Hypertension, stable. 3. Depression. 4. History of benign prostatic hypertrophy, stable. PLAN: We will continue present supportive care. Orthopedic issues will be per Dr. Haider Acosta, orthopedic surgeon. Tomorrow he will start with his physical therapy for conditioning and strengthening. I have encouraged good pulmonary hygiene. I have restarted his home medications. Will continue to monitor the patient closely and follow as needed. Dr. Cortez is the collaborating physician available for consultation. [facility][id number] [facility]
[2018-03-31] MEDS ORDERED: ceFAZolin SODIUM 2 GRAMS PREMI 50 ML IVPB ONE ×2 (18:33→19:30)
[2018-03-31] MEDS: ceFAZolin SODIUM 2 GRAMS PREMI 2 GM in PREMIX BAG 1 BAG IVPB SCH (18:39)
[2018-03-31] MEDS: VANCOMYCIN HCL INJ 1,000 MG in SODIUM CHLORIDE 0.9% 250ML 250 ML IVPB SCH (19:10)
[2018-03-31] MEDS ORDERED: ENOXAPARIN SODIUM 30 MG/0.3 ML SYG SUBCU ONE (19:30)
[2018-03-31] MEDS: DOCUSATE CALCIUM 240 MG CAP PO SCH (20:31)
[2018-03-31] MEDS: ENOXAPARIN SODIUM 30 MG/0.3 ML SYG SUBCU SCH (22:42)
[2018-04-01] MEDS: ceFAZolin SODIUM 2 GRAMS PREMI 2 GM in PREMIX BAG 1 BAG IVPB SCH ×2 (00:18→10:17)
[2018-04-01] MEDS: HYDROcodone 5MG/APAP 325MG 1 EA TAB PO PRN ×4 (00:25→21:42)
[2018-04-01] MEDS: ONDANSETRON INJ 4 MG/2 ML VIAL IV PRN ×2 (05:24→10:04)
[2018-04-01] MEDS: VANCOMYCIN HCL INJ 1,000 MG in SODIUM CHLORIDE 0.9% 250ML 250 ML IVPB SCH (06:10)
[2018-04-01] MEDS ORDERED: diphenhydrAMINE HCL 50 MG/ML VIAL ONE (06:13)
[2018-04-01] MEDS ORDERED: diphenhydrAMINE HCL 50 MG/ML VIAL IV ONE ×2 (06:16→09:39)
[2018-04-01] MEDS ORDERED: ceFAZolin SODIUM 2 GRAMS PREMI 50 ML IVPB ONE (09:09)
[2018-04-01] MEDS ORDERED: diphenhydrAMINE HCL 25 MG CAP PO ONE (09:42)
[2018-04-01] MEDS ORDERED: diphenhydrAMINE HCL 25 MG CAP ONE (09:48)
[2018-04-01] MEDS: CYCLOBENZAPRINE HCL 10 MG TAB PO PRN ×3 (10:37→23:42)
[2018-04-01] MEDS: traMADol HCL 50 MG TAB PO PRN ×2 (10:37→23:42)
[2018-04-01] MEDS: ENOXAPARIN SODIUM 30 MG/0.3 ML SYG SUBCU SCH ×2 (11:30→22:47)
[2018-04-01] MEDS ORDERED: PROMETHAZINE HCL INJ 12.5 MG in SODIUM CHLORIDE 0.9% 50ML 50 ML IVPB ONE (12:47)
[2018-04-01] MEDS ORDERED: MEPERIDINE HCL 50 MG/ML VIAL IV ONE (12:48)
[2018-04-01] MEDS ORDERED: SODIUM CHLORIDE 0.9% 50ML 50 ML ONE (13:07)
[2018-04-01] MEDS ORDERED: PROMETHAZINE HCL INJ 25 MG/ML VIAL ONE (13:07)
--- NOTE | 2018-04-01 14:15 | PN ---
DATE: 04/01/18 SUPERVISING PHYSICIAN: Dae Cortez M.D. SUBJECTIVE: The patient is sleeping in his bed. He awakens easily. Earlier today he had complaints of a red splotchy rash all over. He was given some Benadryl and Zantac at that time. At this time it does not itch too badly, but he does still have some red splotchy areas diffusely on his body. No complaints of shortness of breath, pruritus, nausea, vomiting, diarrhea, constipation or chest pain. He also did not sleep well on the Ambien last night. OBJECTIVE: VITAL SIGNS: He is afebrile, heart rate 86, blood pressure 102/63, respiratory rate 20, O2 sat 97% on room air. RESPIRATORY: Essentially clear to auscultation bilaterally. CARDIAC: Regular rate and rhythm. GASTROINTESTINAL: Abdomen is soft, nondistended, non-tender. Bowel sounds are positive. EXTREMITIES: He has a dressing to his right knee that is dry and intact. Bilateral pedal pulses are palpable at +2. SKIN: There is an occasional red splotchy areas diffusely all over his body. There is no skin sloughing. NEUROLOGIC: He is awake, alert and oriented times three. LABORATORY: Hemoglobin 12.7, hematocrit 39. All other labs and films have been reviewed via the EMR. ASSESSMENT: 1. Osteoarthritis of the right knee. Postoperative day #1 right total knee arthroplasty performed by Dr. Haider Acosta, orthopedic surgeon. 2. Hypertension, stable. 3. Depression. 4. History of benign prostatic hypertrophy, stable. 5. Urticarial type rash, may be drug induced but there is no way to be certain , responding well to Benadryl and Zantac with no shortness of breath or severe pruritus. PLAN: We will continue present supportive care. I have given him some Benadryl and Zantac for the rash. We will monitor that closely and give him repeat dosings of Benadryl. Dr. Acosta recommended that the patient be tried on a trial dose of Demerol, so Demerol was ordered along with some Phenergan. I have discontinued his Ambien. He does have Restoril for assistance with insomnia. He has begun his physical therapy for strengthening and conditioning. Will continue that as ordered. Orthopedic issues will be per Dr. Haider Acosta, orthopedic surgeon. I have encouraged good pulmonary hygiene. Will continue to monitor him closely and follow as needed. Dr. Cortez is the collaborating physician available for consultation. #[id number] [facility]
[2018-04-01] MEDS: LISINOPRIL 10 MG TAB PO SCH (15:07)
[2018-04-01] MEDS: MAGNESIUM OXIDE 400 MG TAB PO SCH (15:08)
[2018-04-01] MEDS: PARoxetine HCL 20 MG TAB PO SCH (15:08)
[2018-04-01] MEDS: CELECOXIB 100 MG CAP PO SCH ×2 (15:09→17:38)
[2018-04-01] MEDS: PANTOPRAZOLE SODIUM IV 40 MG VIAL IV SCH ×2 (16:04→16:23)
[2018-04-01] MEDS: DOCUSATE CALCIUM 240 MG CAP PO SCH (20:27)
[2018-04-02] MEDS: HYDROcodone 5MG/APAP 325MG 1 EA TAB PO PRN ×4 (02:12→16:26)
[2018-04-02] MEDS: CYCLOBENZAPRINE HCL 10 MG TAB PO PRN (07:59)
[2018-04-02] MEDS: CELECOXIB 100 MG CAP PO SCH ×2 (07:59→16:26)
[2018-04-02] MEDS: PARoxetine HCL 20 MG TAB PO SCH (08:49)
[2018-04-02] MEDS: MAGNESIUM OXIDE 400 MG TAB PO SCH (08:49)
[2018-04-02] MEDS: LISINOPRIL 10 MG TAB PO SCH (08:50)
[2018-04-02] MEDS: SODIUM CHLORIDE 0.9% (FLUSH) 10 ML SYG IV SCH ×2 (08:52→21:10)
[2018-04-02] MEDS ORDERED: SODIUM CHLORIDE 0.9% 500ML 500 ML IVS ONE ×2 (09:27→12:59)
[2018-04-02] MEDS ORDERED: SODIUM CHLORIDE 0.9% 500ML 500 ML ONE (09:29)
[2018-04-02] MEDS: ENOXAPARIN SODIUM 30 MG/0.3 ML SYG SUBCU SCH ×2 (11:00→23:27)
[2018-04-02] MEDS: traMADol HCL 50 MG TAB PO PRN (12:00)
[2018-04-02] MEDS: diphenhydrAMINE HCL 50 MG/ML VIAL IV PRN ×2 (12:47→21:09)
--- NOTE | 2018-04-02 12:55 | PN ---
DATE: 04/02/18 SUPERVISING PHYSICIAN: Dae Cortez M.D. SUBJECTIVE: The patient is lying in his recliner in his room. He was asleep. He awakens easily. He is alert and oriented. He has no complaints of nausea, vomiting, diarrhea, dizziness, chest pain or shortness of breath. The nursing staff has reported that his blood pressure was slightly on the low side this morning. On one arm systolic blood pressure was in the 80s, on the other side his systolic blood pressure was in the 90s. He only had 250 out overnight for his urine output, so will give him a saline bolus. OBJECTIVE: VITAL SIGNS: He is afebrile, heart rate 95, blood pressure at 6:00 AM was 100/60, respiratory rate 18, O2 sat 96% on room air. RESPIRATORY: Essentially clear to auscultation bilaterally. CARDIAC: Regular rate and rhythm. GASTROINTESTINAL: Abdomen is soft, nondistended, non-tender. Bowel sounds are positive. His bilateral pedal pulses are palpable at +2. He has an Mono wrap to his right knee. It is dry and intact. NEUROLOGIC: He is awake, alert and oriented times three. LABORATORY: There are no labs or films to report at this time. ASSESSMENT: 1. Osteoarthritis of the right knee postoperative day #2 right total knee arthroplasty performed by Dr. Haider Acosta, orthopedic surgeon. 2. Hypertension, stable. 3. Depression. 4. History of benign prostatic hypertrophy, stable. 5. Urticarial type rash, may be drug induced but there is no way to be certain , responding well to Benadryl and Zantac with no shortness of breath or severe pruritus that has now resolved. PLAN: We will continue present supportive care. Due to his low urine output and slightly hypotensive state, will give him 500 mL of normal saline bolus. He will continue with his physical therapy for strengthening and conditioning. Orthopedic issues will be per Dr. Haider Acosta. It will need to be discussed with the patient tomorrow his discharge planning for his physical therapy, but otherwise will continue to monitor him closely and follow as needed. Dr. Cortez is the collaborating physician available for consultation. #[id number] [facility]
[2018-04-02] MEDS ORDERED: diphenhydrAMINE HCL 25 MG CAP PO ONE (12:59)
[2018-04-02] MEDS: PANTOPRAZOLE SODIUM IV 40 MG VIAL IV SCH (13:13)
--- NOTE | 2018-04-02 13:23 | PN ---
DATE: 04/01/18 SUBJECTIVE: Mr. Ann is doing well right now, although he does have some nausea. Aside from that, there are no other complaints. OBJECTIVE: He is afebrile. Vital signs are stable. Dressing is clean. There are no signs or symptoms of infection. ASSESSMENT: 1. Status post total knee arthroplasty. PLAN: The plan at this point is for him to continue on with his weightbearing as tolerated. We are going to switch him over to Demerol and see if that does well enough for him and hopefully that will help alleviate some of his nausea. #[id number] [facility]
[2018-04-02] MEDS: DOCUSATE CALCIUM 240 MG CAP PO SCH ×2 (21:09→21:27)
[2018-04-03] MEDS: MAGNESIUM OXIDE 400 MG TAB PO SCH (08:15)
[2018-04-03] MEDS: CELECOXIB 100 MG CAP PO SCH (08:15)
[2018-04-03] MEDS: IV SET AND CAP CHANGE INJ INJ SCH (08:16)
[2018-04-03] MEDS: PARoxetine HCL 20 MG TAB PO SCH (08:16)
[2018-04-03] MEDS: SODIUM CHLORIDE 0.9% (FLUSH) 10 ML SYG IV SCH (08:17)
[2018-04-03] MEDS: LISINOPRIL 10 MG TAB PO SCH (10:22)
[2018-04-03] MEDS: HYDROcodone 5MG/APAP 325MG 1 EA TAB PO PRN (10:25)
[2018-04-03] MEDS: ENOXAPARIN SODIUM 30 MG/0.3 ML SYG SUBCU SCH (10:25)
[2018-04-03 13:45] VITALS: BP 112/68; TEMP 98.2; O2SAT 98
[2018-04-03] MEDS ORDERED: MAGNESIUM HYDROXIDE 30 ML UD PO ONE (21:00)
[2018-04-03] MEDS ORDERED: BISACODYL SUPPOSITORY 10 MG PR ONE (21:00)
--- NOTE | 2018-04-04 09:06 | DS ---
SUPERVISING PHYSICIAN: Bharat Castellanos MD ADMISSION DIAGNOSIS: 1. Osteoarthritis of the right knee for elective right total knee arthroplasty performed by Dr. Haider Acosta, orthopedic surgeon. 2. Hypertension, stable. 3. Depression. 4. History of benign prostatic hypertrophy, stable. DISCHARGE DIAGNOSIS: 1. Osteoarthritis of the right knee, postoperative day #3 for elective right total knee arthroplasty having failed outpatient treatment plan for osteoarthritis with surgery performed by Dr. Haider Acosta, orthopedic surgeon. 2. Hypertension, stable. 3. Depression, chronic. 4. History of benign prostatic hypertrophy, stable. 5. Urticarial type rash postoperatively, liked related to administration of antibiotic, uncertain at this point, but with the patient responding well to Benadryl and Zantac with no shortness of breath or severe reaction. REASON FOR HOSPITALIZATION: Mr. Ann is a 67-year-old male patient who was seen postoperatively after right total knee arthroplasty performed by Dr. Haider Acosta, orthopedic surgeon. Prior to surgical intervention he tried conservative measures but due to his increasing and continued pain he elected to have a right total knee arthroplasty. He requested Dr. Haider Acosta, orthopedic surgeon, for operative intervention. He had no intraoperative complications. LABORATORY: Postoperative hemoglobin and hematocrit were 12.7 and 39.0 respectively. RADIOLOGY: Postoperative knee x-ray and pelvis x-ray per radiologic interpretation showed post surgical changes related to the right knee arthroplasty without apparent surgical complications. Pelvis x-ray showed recent urine catheter in place and otherwise unremarkable. Exam revealed bone island in left proximal femur with no fractures detected. HOSPITAL COURSE: Mr. Ann was admitted for elective right total knee arthroplasty on 03/31/18. Surgery was performed by Dr. Haider Acosta. There were no intraoperative or postoperative complications. He was able to participate with his physical therapy. His diet was advanced. He had no complications medically and it was felt he could continue with [facility] for continued [facility] efforts after discharge. PLAN: Mr. Ann was discharged on 04/03/18 with instructions to have close clinical followup with Dr. Acosta as scheduled. He was to continue with his physical therapy efforts through the [facility] to call and get scheduled after discharge. He was to resume all other home medications as prior to discharge and to take Xarelto for DVT prophylaxis as directed as well as utilize tramadol for pain or call Dr. Acosta's office for [place] if not controlled with tramadol. He was to shower, but no tub baths. He was to be weightbearing as tolerated. Diet at discharge was regular diet as tolerated. Activity per physical therapy. NEW MEDICATIONS AT DISCHARGE: 1. Xarelto 10 mg, #8, daily. 2. Flexeril 10 mg q.8h. as needed for pain, #20. 3. Tramadol 50 to 100 mg q.4h. as needed for pain, #30. Scripts were sent to [facility]. DISPOSITION: The patient was discharged home. Condition on discharge was stable and improved. [facility][id number] [facility]
--- NOTE | 2018-04-04 09:18 | PN ---
DATE: 04/02/18 SUBJECTIVE: Mr. Ann is improved and his nausea has subsided. OBJECTIVE: Afebrile. Vital signs stable. Wound is clean. There are no signs or symptoms of infection. ASSESSMENT: Status post total knee arthroplasty. PLAN: The plan at this point is to continue with physical therapy with weightbearing as tolerated. [facility][id number] [facility]
--- NOTE | 2018-04-04 09:19 | PN ---
DATE: 04/03/18 SUBJECTIVE: Mr. Ann is doing really well. His pain is well controlled. OBJECTIVE: Afebrile. Vital signs stable. Wound is clean. There are no signs or symptoms of infection. ASSESSMENT: Status post total knee arthroplasty. PLAN: The plan at this point is to continue with weightbearing as tolerated and we will likely discharge him within one to two days. #[id number] [facility]
--- NOTE | 2018-04-04 09:22 | OP ---
DATE OF PROCEDURE: 03/31/18 PREOPERATIVE DIAGNOSIS: 1. Osteoarthritis of the knee. POSTOPERATIVE DIAGNOSIS: 1. Osteoarthritis of the knee. PROCEDURE: 1. Total knee arthroplasty. SURGEON: Haider Acosta MD. COMPUTER SUPPORT TECHNICIAN: Tacho Villafuerte CST, SA-C. ANESTHESIA: General anesthesia. COMPLICATIONS: None. FINDINGS: Severe arthritis. INDICATION: Mr. Ann has a long history of pain that has been getting progressively worse. In addition to that, he has failed conservative measures. Because of his failure of conservative measures, he has requested operative intervention. After discussing the risks, benefits and alternatives to that, the patient has given informed consent for total knee arthroplasty. PROCEDURE: The patient was brought to the Operating Room and placed in supine position. General anesthesia was induced and the patient's leg was sterilely prepped and draped. Following prepping and draping, the distal femur was exposed and using an intramedullary guide, the distal femoral cut was made. The appropriate sized cutting block was measured, pinned into place, and the anterior, posterior, and chamfer cuts were made. The ACL was transected and the tibia was subluxed. Both the medial and lateral menisci were removed. An intramedullary guide was used to make the proximal tibial cut. The appropriate sized base plate was placed and a trial polyethylene was placed. The trial femur was placed, the knee was reduced, and the knee was taken through a range of motion. The knee was stable in anterior, posterior, varus and valgus stress. The patella tracked anatomically without evidence of subluxation or dislocation. After trialing, the trial components were removed and the bony surfaces were thoroughly irrigated with saline. Following irrigation, the surfaces were dried and the final components were cemented into place. The excess cement was removed and the remaining cement was allowed to cure. The knee was again taken through a range of motion to confirm stability. The wound was then irrigated with saline and closure was performed using PDS to approximate the arthrotomy followed by closure of the subcutaneous tissues with a combination of running and interrupted Monocryl sutures. Sterile dressing was placed. The patient was awoken from anesthesia and taken to Recovery. POSTOPERATIVE PLAN: The patient will be weight-bearing as tolerated on postoperative day 1. COMPONENTS: 5app Triathlon knee, size 6 femur, size 6 tibia, 9 mm insert. #[id number] [facility]
== END 2018-04-03 16:00 | disposition home or self-care (01) | DRG 470 ==
LOC: AMB 05:41 → MS 12:15
PROVIDERS: ADMIT Orthopaedic Surgery; ATTEND Nurse Practitioner Family
PROC: 0SRC0J9 Replacement of Right Knee Joint with Synthetic Substitute, Cemented, Open Approach (ICD-10-PCS; principal; 2018-03-31 07:10)
DX: M17.11 Unilateral primary osteoarthritis, right knee (principal); I10 Essential (primary) hypertension; N40.0 Benign prostatic hyperplasia without lower urinary tract symptoms; F32.9 Major depressive disorder, single episode, unspecified; E78.5 Hyperlipidemia, unspecified; Z88.0 Allergy status to penicillin; Z91.041 Radiographic dye allergy status; L50.0 Allergic urticaria; T50.905A Adverse effect of unspecified drugs, medicaments and biological substances, initial encounter; Z86.73 Personal history of transient ischemic attack (TIA), and cerebral infarction without residual deficits; Z85.828 Personal history of other malignant neoplasm of skin; Z79.82 Long term (current) use of aspirin

== ENCOUNTER → 2018-04-06 | Outpatient (CLI) | payer BC ==
--- NOTE | 2018-04-06 17:30 | US ---
Procedure: US LOWER EXTREMITY VEINS LIMITED/UNILATERAL/FOLLOW UP Exam Date: 04/06/2018 Ordering Provider: BAM BATEMAN Clinical Indication: Right lower extremity pain Comparison: 11/03/2017 Real time ultrasound was utilized for evaluation of the deep veins of the Right lower extremity. Color Doppler and pulse Doppler analysis was performed, including B-mode/grayscale imaging, Doppler spectral analysis and color flow analysis. Real time visualization of the right lower extremity deep veins was accomplished. Chief Executive images recorded. The deep veins demonstrated no abnormal intraluminal signal. The pulse Doppler and color Doppler flow patterns demonstrated normal venous flow with respiratory variation. There was increased flow with distal augmentation maneuvers. IMPRESSION: No evidence of DVT in the right lower extremity. Electronically signed by: Mateo Cabrales MD 04/06/2018 5:29 PM CDT
== END ==
LOC: US 15:30
PROVIDERS: ATTEND Orthopaedic Surgery
DX: R60.9 Edema, unspecified (principal)

== ENCOUNTER 2020-06-24 18:56 | Emergency (ER) | payer BC, MEDICARE ==
[2020-06-24] MEDS ORDERED: SODIUM CHLORIDE 0.9% 1000ML 1,000 ML IVS ONE (19:33)
--- NOTE | 2020-06-24 20:12 | RAD ---
EXAM: XR Chest, 1 View CLINICAL HISTORY: The patient is 69 years old and is Male; allergic reaction TECHNIQUE: Single upright portable view of the chest. COMPARISON: November 02, 2017. FINDINGS: Lungs: Unremarkable. No consolidation. Pleural space: Unremarkable. No pneumothorax. Heart: Unremarkable. No cardiomegaly. Mediastinum: Unremarkable. Bones/joints: No acute fracture visualized. Upper abdomen: No free air in the visualized upper abdomen. IMPRESSION: No acute cardiopulmonary process identified. Electronically signed by: Tennille Pulido MD 06/24/2020 8:10 PM [facility]
[2020-06-24] MEDS ORDERED: methylPREDNISolone SODIUM SUC 125 MG/2 ML VIAL IV ONE (20:34)
[2020-06-24] MEDS ORDERED: FAMOTIDINE 20 MG TAB PO SCH (21:00)
--- NOTE | 2020-06-24 21:49 | ED.PDOC ---
History of Present Illness - General Chief Complaint: Allergic Reaction Stated Complaint: Rash Time Seen by Provider: 06/24/20 20:10 Source: patient, family Exam Limitations: no limitations - History of Present Illness Initial Comments: PT AWOKE THIS AM WITH A RASH ON BUE, BLE, TRUNK. TONGUE SWOLLEN, N/V, LIGHT HEADED. TOOK BENADRYL - TONGUE EDEMA RESOLVED COMPLETELY WELL MOST OF THE RASH. STILL HAVING THE OTHER SX. NO SOB. NO WHEEZING. Timing/Duration: 24 hours Severity: moderate, severe Improving Factors: nothing Worsening Factors: nothing Associated Symptoms: nausea/vomiting Allergies/Adverse Reactions: Allergies Bee Venom Allergy (Severe, Verified 11/02/17 15:07) Other swelling of throat, itching, welps Penicillins Allergy (Severe, Verified 11/02/17 15:07) Other Swelling of his throat, itching Iodine Allergy (Verified 03/20/18 09:53) IV CONTRAST Allergy (Uncoded 03/20/18 09:53) Home Medications: Ambulatory Orders Aspirin [Aspirin EC] 81 mg PO BEDTIME 12/30/13 Benazepril HCl [Benazepril Hydrochloride] 20 mg PO DAILY 12/30/13 Paroxetine HCl [Paroxetine Hydrochloride] 10 mg PO DAILY 12/30/13 Omeprazole Magnesium [Prilosec Otc] 20 mg PO DAILYBK #30 tab 12/31/13 Cyclobenzaprine HCl [Flexeril] 10 mg PO Q8H PRN #20 tab 04/03/18 Rivaroxaban [Xarelto] 10 mg PO DAILY 8 Days #8 tab 04/03/18 Tamsulosin HCl 0.4 mg PO DAILY 04/03/18 Tramadol HCl 50 - 100 mg PO Q4HR PRN #30 tab 04/03/18 Methylprednisolone [Medrol Dose Heath] 4 mg PO DAILY #1 tab 06/24/20 Review of Systems - Review of Systems Constitutional: Denies: chills, fever EENTM: Denies: ear pain, nose congestion Respiratory: Denies: cough, short of breath, wheezing Cardiology: States: edema. Denies: chest pain, palpitations Gastrointestinal/Abdominal: States: nausea, vomiting. Denies: abdominal pain Genitourinary: States: no symptoms reported Musculoskeletal: Denies: back pain, neck pain Skin: States: change in color, rash Neurological: States: no symptoms reported Endocrine: States: no symptoms reported Hematologic/Lymphatic: States: no symptoms reported All other Systems: Reviewed and Negative Past Medical History (General) - Patient Medical History Hx Seizures: No Hx Stroke: Yes Hx Dementia: No Hx Asthma: No Hx of COPD: No Hx Cardiac Disorders: No Hx Congestive Heart Failure: No Hx Pacemaker: No Hx Hypertension: Yes Hx Thyroid Disease: No Hx Diabetes: No Hx Gastroesophageal Reflux: No Hx Renal Disease: No Hx Cancer: Yes - Skin Hx of HIV: No Hx Hepatitis C: No Hx MRSA: No Surgical History: cholecystectomy, tonsillectomy - Vaccination History Hx Tetanus, Diphtheria Vaccination: Yes Hx Influenza Vaccination: Yes Hx Pneumococcal Vaccination: Yes - Social History Hx Tobacco Use: No Hx Chewing Tobacco Use: No Hx Alcohol Use: Yes Hx Substance Use: No Hx Substance Use Treatment: No Hx Depression: No Feels Threatened In Home Enviroment: No Feels Threatened In a Relationship: No Hx Physical Abuse: No Hx Emotional Abuse: No Hx Suspected Abuse: No - Female History Patient is a Female of Child Bearing Age (10 -59 yrs old): No Patient : No - Triage Comment ED Triage Comment: The patient was sitting in a wheelchair in the [facility] and was brought into the triage room with his . He was alert and oriented times 4 and complained of a rash for the past 2 days over all parts of his body and a swollen tounge that was better after benadryl. He complained of weakness and nausea and had noted back right scapula pain that had been going for the past 2 days. He had no other noted complaints at the time of assessment and denied c hest pain and shortness of breath. Family Medical History - Family History Mother Living Status: Hx Family Stroke: Yes Hx Family Diabetes: Yes Hx Family Cancer: Yes Father Living Status: Hx Family Hypertension: Yes Hx Family Diabetes: Yes Physical Exam - Physical Exam General Appearance: Alert, Obese Eye Exam: bilateral normal Ears, Nose, Throat: hearing grossly normal, normal ENT inspection, normal pharynx - NO HYPERGLOSSUS. Neck: non-tender, full range of motion, supple Respiratory: chest non-tender, lungs clear, normal breath sounds, no respiratory distress, no accessory muscle use Cardiovascular/Chest: normal peripheral pulses, no murmur, other - TACHY, REG RHYTHM. Peripheral Pulses: radial,right: 2+, radial,left: 2+ Gastrointestinal/Abdominal: normal bowel sounds, non tender, soft Rectal Exam: deferred Extremity: no pedal edema, no calf tenderness, normal capillary refill Neurologic: no motor/sensory deficits, alert, normal mood/affect, oriented x 3 Skin Exam: rash - FAINT WHEALS, BLANCHABLE. Lymphatic: no adenopathy Progress - Progress Progress: 06/24/20 21:47 HOTN 93/61, PULSE 130. BOLUSING 1 L. GAVE STEROIDS, H2, TOOK BENADRYL AT HOME. CBC WBC 17, ELEV NEUTS. CMP CR 2.21 (1.21 EIGHT MOS AGO). ARF HOTN, ARF - BOLUSED. BP INCREASED NICELY TO 133/76 AFTER NS BOLUS AND PULSE NOW 60'S. PT STATES HIS LIGHT HEADEDNESS RESOLVED. 06/24/20 22:30 RASH RETURNED BUT ALL OTHER SX RESOLVED. GIVING BENADRYL FOR RASH. IF RESOLVES, THEN OK TO DC. NO DYSPNEA, NO RESPIRATORY COMPROMISE THUS SAFE FOR DC TO HOME WITH MEDROL DOSE PACK. 06/24/20 22:33 PT INSTRUCTED TO F/U WITH PCP THIS WEEK TO ENSURE ARF RESOLVED AND BUN/CR RETURN TO BASELINE. 06/24/20 23:00 RASH ALMOST RESOLVED. SAFE FOR DC. WILL START MEDROL DOSE PACK AND BENADRYL TOMORROW AM. Departure - Departure Clinical Impression: Urticaria, Neutrophilic leukocytosis, Light headedness Allergic reaction Qualifiers: Encounter type: initial encounter Qualified Code(s): T78.40XA - Allergy, unspecified, initial encounter Hypotension Qualifiers: Hypotension type: other hypotension type Qualified Code(s): I95.89 - Other hypotension Acute renal failure Qualifiers: Acute renal failure type: unspecified Qualified Code(s): N17.9 - Acute kidney failure, unspecified Nausea & vomiting Qualifiers: Vomiting type: unspecified Vomiting Intractability: non-intractable Qualified Code(s): R11.2 - Nausea with vomiting, unspecified Disposition: Discharge to Home or Self Care Condition: Good Departure Forms: ED Discharge - Pt. Copy, Patient Portal Self Enrollment Instructions: DI for Allergic Rhinitis, Allergic Reaction ED Diet: resume usual diet Activity: increase activity as tolerated Referrals: Bony Webb MD [Primary Care Provider] - 1-5 Days Prescriptions: Methylprednisolone [Medrol Dose Heath] 4 mg PO DAILY #1 tab Home Medications: Ambulatory Orders Aspirin [Aspirin EC] 81 mg PO BEDTIME 12/30/13 Benazepril HCl [Benazepril Hydrochloride] 20 mg PO DAILY 12/30/13 Paroxetine HCl [Paroxetine Hydrochloride] 10 mg PO DAILY 12/30/13 Omeprazole Magnesium [Prilosec Otc] 20 mg PO DAILYBK #30 tab 12/31/13 Cyclobenzaprine HCl [Flexeril] 10 mg PO Q8H PRN #20 tab 04/03/18 Rivaroxaban [Xarelto] 10 mg PO DAILY 8 Days #8 tab 04/03/18 Tamsulosin HCl 0.4 mg PO DAILY 04/03/18 Tramadol HCl 50 - 100 mg PO Q4HR PRN #30 tab 04/03/18 Methylprednisolone [Medrol Dose Heath] 4 mg PO DAILY #1 tab 06/24/20 Additional Instructions: Your kidney labs were elevated due to dehydration. Please drink at least 64 ounces of water per day to stay hydrated. Please see you regular doctor this week to repeat labs and ensure your kidney function returned to normal.
[2020-06-24] MEDS ORDERED: diphenhydrAMINE HCL 50 MG/ML VIAL IV ONE (22:27)
[2020-06-24 22:30] VITALS: O2SAT 96
[2020-06-24 23:11] VITALS: BP 142/86; TEMP 97.7
== END 2020-06-24 23:11 | disposition home or self-care (01) ==
LOC: ER 18:56
DX: L50.0 Allergic urticaria (principal); D72.829 Elevated white blood cell count, unspecified; R42 Dizziness and giddiness; I95.89 Other hypotension; N17.9 Acute kidney failure, unspecified; R11.2 Nausea with vomiting, unspecified; I10 Essential (primary) hypertension; Z85.828 Personal history of other malignant neoplasm of skin; Z86.73 Personal history of transient ischemic attack (TIA), and cerebral infarction without residual deficits; Z79.01 Long term (current) use of anticoagulants; Z79.82 Long term (current) use of aspirin; Z79.899 Other long term (current) drug therapy; Z91.041 Radiographic dye allergy status; Z88.0 Allergy status to penicillin
CPT/HCPCS: 36415; 71045; 80053; 85025; J1200; J2930; J7030